=== PATIENT | female | born 1980 | race Caucasian/White ===

== ENCOUNTER 2022-09-27 06:57 | Day surgery (SDC) | payer MEDICAID ==
[~2022-09-27] VITALS: Ht 152.4 cm; Wt 63.5 kg
[~2022-09-27 06:57] MED LIST: CYCL10TA21 PO
[2022-09-27 07:31] LABS: BASOPHILS % 0.5 % (0.0-2.0); EOSINOPHILS % 8.1 % (0.0-5.0); HEMATOCRIT. 38.5 % (36.0-48.0); HEMOGLOBIN. 12.8 g/dL (12.0-16.0); LYMPHOCYTES % 30.8 % (20.0-50.0); MEAN CORPUSCULAR HEMOGLOBIN 30.2 pg (28.0-32.0); MEAN CORPUSCULAR VOLUME 90.5 fL (81.0-99.0); MONOCYTES % 5.6 % (2.0-8.0); PLATELET 365 x1000/uL (130-400); RED BLOOD CELL COUNT 4.25 mill/uL (4.2-5.4); RED CELL DISTRIBUTION WIDTH 12.5 % (11.6-14.6)
[2022-09-27 07:41] LABS: CHLORIDE 108 mEq/L (98-107)
[2022-09-27 07:46] LABS: UCG SCREEN NEGATIVE
[2022-09-27] MEDS ORDERED: LACTATED RINGERS 1,000 ML IV SCH (08:00)
[2022-09-27 08:11] LABS: CLARITY URINE CLEAR (CLEAR); COLOR URINE YELLOW (YELLOW); KETONES URINE NEGATIVE (NEGATIVE); LEUKOCYTE ESTERASE URINE NEGATIVE (NEGATIVE); NITRITE URINE NEGATIVE (NEGATIVE); OCCULT BLOOD URINE 1+ (NEGATIVE); PH URINE 5.5 (4.5-8.0); PROTEIN URINE NEGATIVE (NEGATIVE); SPECIFIC GRAVITY URINE 1.018 (1.005-1.030); UROBILINOGEN URINE 0.2 E.U./dL (0.2-1.0)
[2022-09-27] MEDS ORDERED: SKIN ADHESIVE 0.7 GM EA TOP ONE ×2 (08:46→10:43)
[2022-09-27] MEDS ORDERED: LIDOCAINE HCL 1% 10 MG/ML 10ML VIAL ONE (08:46)
[2022-09-27] MEDS ORDERED: BACITRACIN 15GM TUBE TOP ONE (08:46)
[2022-09-27] MEDS ORDERED: BUPIVACAINE HCL/PF 0.5% (5MG/ML) 10ML ONE (08:56)
[2022-09-27] MEDS ORDERED: FENTANYL CITRATE/PF 50MCG/ML 2ML VIAL ONE (09:53)
[2022-09-27] MEDS ORDERED: MIDAZOLAM HCL 2 MG/2 ML VIAL ONE (09:53)
[2022-09-27] MEDS ORDERED: PROPOFOL 200MG/20ML VIAL IV ONE (09:53)
[2022-09-27] MEDS ORDERED: CEFAZOLIN SODIUM 1000MG/VIAL ONE (10:12)
[2022-09-27] MEDS ORDERED: ONDANSETRON HCL 4MG/2ML INJ ONE (10:12)
[2022-09-27] MEDS ORDERED: METOCLOPRAMIDE HCL 10MG/2ML VIAL ONE (10:12)
[2022-09-27] MEDS ORDERED: DEXAMETHASONE 4MG/ML 1ML VIAL ONE (10:12)
[2022-09-27] MEDS ORDERED: KETOROLAC 30MG/ML VIAL ONE (10:12)
[2022-09-27] MEDS ORDERED: LIDOCAINE HCL 1% 20ML VIAL (Pyxis) INJ ONE (10:12)
[2022-09-27] MEDS ORDERED: ONDANSETRON HCL 4MG/2ML INJ IV PRN (10:15)
[2022-09-27] MEDS ORDERED: HYDROMORPHONE HCL/PF 2MG/ML CPJ IV PRN (10:15)
[2022-09-27] MEDS ORDERED: MEPERIDINE HCL/PF 25MG/ML CPJ IV PRN (10:15)
== END 2022-09-27 12:45 | disposition home or self-care (01) ==
LOC: OR 06:57
PROVIDERS: ATTEND Surgery
DX: D17.24 Benign lipomatous neoplasm of skin and subcutaneous tissue of left leg (principal); D17.1 Benign lipomatous neoplasm of skin and subcutaneous tissue of trunk; Z79.899 Other long term (current) drug therapy; Z98.890 Other specified postprocedural states; Z20.822 Contact with and (suspected) exposure to COVID-19
CPT/HCPCS: 21931; 27327; 36415; 80048; 81003; 81025; 85025; 87426; 88304; C9803; J0690; J1100; J1885; J2250; J2405; J2704; J2765; J3010; J3490